=== PATIENT | male | born 1985 | race Native Hawaiian/Other Pacific Islander ===

== ENCOUNTER 2018-01-19 09:27 | Emergency (ER) | payer OTHER ==
[~2018-01-19] VITALS: Ht 185.4 cm; Wt 131.5 kg
[2018-01-19 09:30] VITALS: TEMP 98
[2018-01-19 10:20] VITALS: BP 137/62
== END 2018-01-19 10:20 | disposition home or self-care (01) ==
LOC: ED 09:27
DX: S61.412A Laceration without foreign body of left hand, initial encounter (principal); S56.022A Laceration of flexor muscle, fascia and tendon of left thumb at forearm level, initial encounter; W26.0XXA Contact with knife, initial encounter
CPT/HCPCS: 90472; 90715; 99282